=== PATIENT | male | born 1965 | race African-American/Black ===

== ENCOUNTER 2017-07-17 08:23 | Emergency (ER) | payer OTHER ==
[~2017-07-17] VITALS: Ht 172.7 cm; Wt 68.0 kg
[2017-07-17 09:04] VITALS: BP 162/87
[2017-07-17] MEDS ORDERED: ONDANSETRON HCL 4 MG/2 ML VIAL IV ONE (09:30)
[2017-07-17] MEDS ORDERED: LORazepam 2MG/ML-1ML VIAL IV ONE (09:30)
[2017-07-17] MEDS ORDERED: SODIUM CHLORIDE 0.9% 1,000 ML IV ONE (09:30)
== END 2017-07-17 10:56 | disposition home or self-care (01) ==
LOC: ER 08:23
DX: F41.9 Anxiety disorder, unspecified (principal); F32.9 Major depressive disorder, single episode, unspecified; I10 Essential (primary) hypertension; I25.2 Old myocardial infarction; F12.10 Cannabis abuse, uncomplicated; Z88.0 Allergy status to penicillin
CPT/HCPCS: 96361; 96374; 96375; 99284; J2060; J2405; J7030